=== PATIENT | female | born 1950 | race Asian ===

== ENCOUNTER → 2019-05-19 15:25 | Outpatient (CLI) | payer MEDICARE, SELFPAY ==
--- NOTE | 2019-05-19 15:35 | RAD_ITS ---
STUDY: X-RAY - LEFT KNEE REASON FOR EXAM: Female, 68 years old. Knee pain TECHNIQUE: 3 view(s) of the knee. COMPARISON: None. FINDINGS: There is no evidence of fracture or dislocation. There are moderate to severe tricompartmental degenerative changes which are most pronounced medially. There is a small suprapatellar joint effusion. There are no radiodense foreign bodies. RAD/Knee 3 Views IMPRESSION: No fracture or dislocation in the left knee. Moderate to severe tricompartmental degenerative changes which are most pronounced medially. Small suprapatellar joint effusion.. Electronically Signed: Jacky Michelle, at 17:38 EDT Tel , Service support ,
== END ==
DX: M17.12 Unilateral primary osteoarthritis, left knee (principal)
CPT/HCPCS: 73562

== ENCOUNTER 2019-06-01 08:58 | Day surgery (SDC) | payer MEDICARE, SELFPAY ==
[2019-06-01] VITALS (7 sets, daily range): BP systolic 88–143; BP diastolic 54–91; PULSE 66–76; RESP 14–16; TEMP 36.1–36.3; O2SAT 97–100; BMI 28.1
--- NOTE | 2019-06-01 11:49 | H&P.OPEN ---
History of Present Illness Date of Admission: 06/01/19 The patient is a 68 year old F resents for screening colonoscopy Past Medical/Surgical History - Planned Operation Planned Operative Procedure/s: cscope open access Date of Operative Procedure: 06/01/19 Permit Signed: No S.O.S: No Is This Patient Having a Total Joint: No - Previous Hospitalizations/Surgeries HX Hospitalizations: No HX of Surgeries: n/a Any Problems With Anesthesia: No You/Your Family Experience Fever (Hyperthermia) With Anes: No Cholinesterase deficiency: No - Cardiovascular Hx Chest Pain within Last 2 months: No Hx of Irregular Heartbeat and/or Afib: No Hx Heart Attack: No Hx Congestive Heart Failure: No Hx Rheumatic Fever: No Hx Hypertension: Yes - controlled with med per daughter Hx Internal Defibrillator: No Hx Pacemaker: No Hx Cardiac Catheterization: No Hx Cardiac Surgery/Stents/Etc.: No Hx Stress Test: No HX Edema: No Hx Pain in Legs when Walking/Leg Cramps: Yes - knee pain - Respiratory Chronic Cough: No HX of Shortness of Breath: No - unable to walk stairs/no sob with exertion Hoarseness: No Hx Chronic Obstructive Pulmonary Disease (COPD): No Hx Asthma: No Hx Emphysema: No Hx Sleep Apnea: No Hx Oxygen Use at Home: No Hx Respiratory Tract Infection/Cold (presently): No Do You Snore Loudly (louder than talking or can be heard): No Do You Often Feel Tired/ Fatigued/ Sleepy Dring Daytime?: No Has Anyone Observed You Stop Breathing During Sleep?: No Result (for STOP score): Negative Hx Smoking: No Smoking Status: Never smoker - Gastrointestinal Hx Gastroesophageal Reflux: No Hx Gastrointestinal Disorders: No Hx Gastrointestinal Bleed: No Hx Ulcer: No Hx Hiatal Hernia: No Difficulty Chewing/Swallowing: No Recent Onset of Swallowing Problems: No Special diet followed at home: No Hx Unplanned Weight Loss of 20#: No HX Unplanned Weight Gain of 20#: No - Neurological Hx Seizures: No HX Syncope/Blackout Spells/Unconsciousness: No Hx CVA/Stroke: No Hx Transient Ischemic Attacks (TIA): No Hx Multiple Sclerosis: No Hx Parkinson's Disease: No Hx Head/Neck Injury: No Hx Headaches: No Hx Back Injury/Pain: No Recent Onset of Speech Difficulty: No Restless Legs: No Does patient have nerve stimulator: No Patient instructed to have device shut off: No Rep notified?: No - Blood Disorder Hx Leukemia: No Bleeding Tendencies: Yes - easy bruising Hx Deep Vein Thrombosis: No Hx High Cholesterol: Yes - mild Blood Transmitted Disease: No Hx Hepatitis: No Hx Cirrhosis: No Hx Anemia: No Hx Blood Disorders: No - Reproduction : No Is Patient Lactating: No Hx Hysterectomy: No Hx Tubal Ligation: No Are You Post Menopause: Yes - Genitourinary Hx Renal Disease: No - Musculoskeletal Hx Arthritis: Yes Hx Rheumatoid Arthritis: No Hx Gout: No Recent Onset of an Orthopedic Problem: No - Endocrine Hx Diabetes: No Thyroid Disease: Yes - on med Hx Steroid Therapy: No - Psycho/Social Hx Substance Use: No Hx Alcohol Use: No Hx Anxiety: No Hx Depression: No Mental Illness: No Hx Dementia: No - Miscellaneous Hx Cancer: No Recent Exposure to Contagious Disease: No Active MRSA: No Hx of C-Diff: No Any Loose Teeth: No Allergies No Known Allergies Allergy (Verified 05/29/19 11:43) - Discharge Is Pt Admitted From a Custodial, or a Alf: No Who Could Help: family Special Equipment Used at Home: cane After D/C, Where Do you Plan to Go: Return Home - From the PAT History Number of Risk Factors: 3 - Physical Exam General: Alert, Oriented x3 Lungs: Clear to auscultation Cardiovascular: Regular rate, Regular Rhythm, No murmurs Abdomen: Bowel Sounds Present, Soft, Non Tender, Non-Distended Vital Signs Temp Pulse Resp BP Pulse Ox 97.4 F L 74 14 143/91 H 99 06/01/19 09:42 06/01/19 09:42 06/01/19 09:42 06/01/19 09:42 06/01/19 09:42 Oxygen Delivery Method Room Air Weight: 139 lb 8.842 oz Body Mass Index (BMI) 28.1 Assessment/Plan Assessment screening colonoscopy Plan: Colonoscopy Surgery Risks - Colonoscopy Risks Include but are not Limited To: Risks include but are not limited to: Bleeding, perforation requiring further surgery, inability to complete colonoscopy requiring barium enema.
--- NOTE | 2019-06-01 12:06 | OP.ENDO_ITS ---
06/01/2019 [facility] Re : Colonoscopy procedure for [facility] This procedure was performed on Saturday, June 01, 2019. My impressions and recommendations are as follows: Impressions : - The entire examined colon is normal on direct and retroflexion views. - No specimens collected. Recommendations : - Discharge patient to home. - Resume previous diet. - Continue present medications. - Repeat colonoscopy in 10 years for screening purposes. - Return to primary care physician (date not yet determined). My findings are described in the full procedure note, which is enclosed. If I can be of further assistance, please feel free to contact me at Doctor phone number(s): , Fax: [phone], Work: . Sincerely, MD Arun Lazo MD 06/01/2019 12:05:43 PM This report has been signed electronically.
== END 2019-06-01 13:01 | disposition home or self-care (01) ==
LOC: EN 08:59 → AC 09:01
PROVIDERS: Visit Provider Surgery
PROC: 0DJD8ZZ Inspection of Lower Intestinal Tract, Via Natural or Artificial Opening Endoscopic (ICD-10-PCS; CPT 45378; principal; 2019-06-01 10:25)
DX: Z12.11 Encounter for screening for malignant neoplasm of colon (principal); E78.00 Pure hypercholesterolemia, unspecified; I10 Essential (primary) hypertension; E06.9 Thyroiditis, unspecified; Z79.899 Other long term (current) drug therapy
CPT/HCPCS: G0121; J7120